=== PATIENT | male | born 1955 | race Caucasian/White ===

== ENCOUNTER 2025-07-28 13:59 | Outpatient (AMB) | payer OTHER, SELFPAY ==
--- NOTE | 2025-07-28 14:01 | A.OFFPC_ITS ---
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: No Accompanied by: Spouse Allergies No Known Allergies Allergy (Verified 07/28/25 14:07) Tobacco use date assessed: 07/28/25 Fall risk assessment: No Falls in past year Last assessed Fall Risk: 07/28/25 Dental Screening Dental Screen Date: 07/28/25 Did you have a dental visit in the last 12 months?: Yes Did you have a dental problem in the last 6 months where you did not have access to dental care?: No Was dental information given to patient?: Patient has dentist HPI HPI Comments History of Present Illness Details 69 year old male with a past medical his tory of prostate cancer, hypertension, erosive gastritis, diverticulosis, hiatal hernia, retinal detachment, pituitary adenoma, SSS, ED OA presenting [facility]. [facility] CV: on losartan, furosemide prn (usually a few times a week). Has seen cardiology in the past. Says h/o heart murmur has had reassuring echo in the past Prostate cancer-followed by [facility]. Seen 02/2025. s/p robotic prostatectomy s/p salvage radiation therapy. Will follow up in September. PSA has been 0 GI: Stable on omeprazole. History of esophageal stricture. Was with Dr Bull, last colonoscopy at [facility] Rsp: pulmonary nodules CT 12/2024-no changes MSK: history of LTHR. Dr Sharma He has been having numbness often right leg from hip to foot. Falls asleep when standing. Had right hip xray with mild arthritis. Sometimes low back discomfort nothing severe Pituitary adenoma-last MRI 2020 stable [facility]-Dr Martínez. [facility]-Dr Ag Colonoscopy 06/2022-5 years. @[facility] Shingrix 2021 Td 07/03/2022 PCV -2024 ROS see HPI PHYSICAL EXAM: GENERAL: Alert and oriented x 3. NAD EYES: EOMI. Anicteric. HENT: Moist mucous membranes. No scleral icterus. No cervical lymphadenopathy. LUNGS: Clear to auscultation bilaterally. CARDIOVASCULAR: Regular rate and rhythm. No murmur. No JVD. ABDOMEN: Soft, non-tender +bs EXTREMITIES: No edema. Non-tender. SKIN: No rashes or lesions. Warm. NEUROLOGIC: No focal neurological deficits. CN II-XII grossly intact PSYCHIATRIC: Cooperative. Appropriate mood and affect [facility] Surgical History (Updated 07/28/25 @ 14:37 by Yolande Lees CMA) H/O prostatectomy H/O hernia repair History of cataract surgery Hx of detached retina repair History of left hip replacement H/O arthroscopy of shoulder Family History (Updated 07/28/25 @ 14:38 by Yolande Lees CMA) Father Colon cancer Social History (Updated 07/28/25 @ 14:38 by Yolande Lees CMA) Housing: House Alcohol intake: current Patient Tobacco Use Status: Never used Tobacco e-Cigarette/Vaping Use: Never Used Second Hand Smoke Exposure: No service: Yes Current occupational status: retired Cognitive needs: No Hearing needs: Yes (hearing aid left ear) Vision needs: Yes (glasses) Questionnaire PHQ-9 Over the last 2 weeks, how often have you been bothered by any of the following problems? 1. Little interest or pleasure in doing things: not at all 2. Feeling down, depressed, or hopeless: not at all 3. Trouble falling or staying asleep, or sleeping too much: not at all 4. Feeling tired or having little energy: not at all 5. Poor appetite or overeating: not at all 6. Feeling bad about yourself - or that you are a failure or have let yourself or your family down: not at all 7. Trouble concentrating on things, such as reading the newspaper or watching television: not at all 8. Moving or speaking so slowly that other people could have noticed. Or the opposite - being so fidgety or restless that you have been moving around a lot more than usual: not at all 9. Thoughts that you would be better off or of hurting yourself in some way: not at all Total score: 0 Depression Screening Interpretation: Negative Depression Screening Done: Yes 96424 - PHQ-9 Billing: Yes Source: Developed by Drs. Hunter Malhotra, Carey BPardeep Escobar and colleagues, with an educational marina from [employer]. Thrive Questionnaire Date Thrive assessed: 07/24/25 I am a: Patient What is your living situation today?: I have a steady place to live Within the past 12 months, did the food you bought not last and you didn't have the money to get more?: Never true Within the past 12 months, did you worry whether your food would run out before you got money to buy more?: Never true Do you have trouble paying for medicines?: No Do you have trouble getting transportation to medical appointments?: No Do you have trouble paying your heating and electricity bill?: No Do you have trouble taking care of your child, family member or friend?: No Do you have trouble with day-to-day activities such as bathing, preparing meals, shopping, managing finances, etc.?: No Are you currently unemployed and looking for a job?: No Are you interested in more education?: No Please select the resources that you would like help with: None Currently or been in a relationship where the following occur: No concerns reported THRIVE Score: 0 AUDIT C Alcohol Use Questionnaire (AUDIT-C) 1. How often do you have a drink containing alcohol?: 2-4 times a month 2. How many drinks containing alcohol do you have on a typical day when you are drinking?: 1 or 2 3. How often do you have six or more drinks on one occasion?: Never Total Score: 2 YAQUELIN-7 AMB Questionnaire YAQUELIN-7 Date YAQUELIN - 7 assessed: 07/28/25 Feeling nervous, anxious, or on edge: 0 = Not at all Not being able to stop or control worryin = Not at all Worrying too much about different things: 0 = Not at all Trouble relaxin = Not at all Being so restless that it is hard to sit still: 0 = Not at all Becoming easily annoyed or irritable: 0 = Not at all Feeling afraid as if something awful might happen: 0 = Not at all Total YAQUELIN-7 score (0-4 normal; 5-9 mild; 10-14 moderate; 15-21 severe): 0 Source: Developed by Drs. Hunter Malhotra, Pardeep Dang and colleagues, with an educational marina from [employer]. YAQUELIN-7 Assessment Billing YAQUELIN-7 Assessment Tool: YAQUELIN-7 Assessment 34990 Physical exam (Primary Care) Vital Signs: Last Vital Signs Temp 97.9 F 07/28/25 14:09 Pulse 68 07/28/25 14:09 Resp 16 07/28/25 14:09 BP 145/69 H 07/28/25 14:09 Pulse Ox 98 07/28/25 14:09 Oxygen Delivery Method Room Air 07/28/25 14:09 BMI result Body Mass Index 46.8 Tobacco/Smoking Status: Tobacco use Status Tobacco use date assessed 07/28/25 07/28/25 14:08 Patient Tobacco Use Status Never used Tobacco 07/28/25 14:38 e-Cigarette/Vaping Use Never Used 07/28/25 14:38 PHQ-9: PHQ-9 Score PHQ-9: Total score 0 07/28/25 15:26 Depression Screening Interpretation: Negative Thrive Assessment: Date of Thrive Assessment Date Thrive assessed 07/24/25 07/28/25 14:03 Currently or been in a relationship where the following occur: No concerns reported Coding Level of Care Code New Pt Level 4 (55722) Complex EM visit Add On G2211 Diagnoses Primary hypertension I10 Hypertension type: primary hypertension Prostate cancer C61 Pituitary adenoma D35.2 Low back pain, unspecified back pain laterality, unspecified chronicity, un specified whether sciatica present M54.50 Chronicity: unspecified Back pain laterality: unspecified Sciatica presence: unspecified whether sciatica present Right hip pain M25.551 Encounter to establish care Z76.89 Additional Codes YAQUELIN-7 Assessment Billing - YAQUELIN-7 Assessment Tool: YAQUELIN-7 Assessment 22116 ([id number]) PHQ-9 - 92991 - PHQ-9 Billing: Yes ([id number]) Assessment & Plan Assessment & Plan (1) Hypertension: Code(s): I10 - Essential (primary) hypertension Category: Medical Qualifiers: Hypertension type: primary hypertension Qualified Code(s): I10 - Essential (primary) hypertension (2) Prostate cancer: Code(s): C61 - Malignant neoplasm of prostate Category: Medical (3) Pituitary adenoma: Code(s): D35.2 - Benign neoplasm of pituitary gland Category: Medical (4) Low back pain: Code(s): M54.50 - Low back pain, unspecified Category: Medical Qualifiers: Chronicity: unspecified Back pain laterality: unspecified Sciatica presence: unspecified whether sciatica present Qualified Code(s): M54.50 - Low back pain, unspecified (5) Right hip pain: Code(s): M25.551 - Pain in right hip Category: Medical (6) Encounter to establish care: Code(s): Z76.89 - Persons encountering health services in other specified circumstances Plan 69 y/o to establish care Past medical surgical social reviewed htn-well controlled GERD-stable on PPI Pituitary adenoma-imaging overdue.Claustrophobia-open MRI right leg numbness -xray ordered labs ordered Orders: Orders Complete Blood Count Auto Diff 07/28/25 C61 - Malignant neoplasm of prostate, D35.2 - Benign neoplasm of pituitary gland, I10 - Essential (primary) hypertension, R35.89 - Other polyuria, Z13.228 - Encounter for screening for other metabolic disorders Lipid Panel 07/28/25 C61 - Malignant neoplasm of prostate, D35.2 - Benign neoplasm of pituitary gland, I10 - Essential (primary) hypertension, R35.89 - Other polyuria, Z13.228 - Encounter for screening for other metabolic disorders Hemoglobin A1c 07/28/25 C61 - Malignant neoplasm of prostate, D35.2 - Benign neoplasm of pituitary gland, I10 - Essential (primary) hypertension, R35.89 - Other polyuria, Z13.228 - Encounter for screening for other metabolic disorders TSH reflex Free T4 07/28/25 C61 - Malignant neoplasm of prostate, D35.2 - B enign neoplasm of pituitary gland, I10 - Essential (primary) hypertension, R35.89 - Other polyuria, Z13.228 - Encounter for screening for other metabolic disorders XR lumbar spine 2-3V 07/28/25 M54.50 - Low back pain, unspecified, R20.0 - Anesthesia of skin MR head/brain wo/w con Today D35.2 - Benign neoplasm of pituitary gland Comprehensive Met. Panel 07/28/25 C61 - Malignant neoplasm of prostate, D35.2 - Benign neoplasm of pituitary gland, I10 - Essential (primary) hypertension, R35.89 - Other polyuria, Z13.228 - Encounter for screening for other metabolic disorders Testosterone, Free/Total 07/28/25 C61 - Malignant neoplasm of prostate, D35.2 - Benign neoplasm of pituitary gland, I10 - Essential (primary) hypertension, R35.89 - Other polyuria, Z13.228 - Encounter for screening for other metabolic disorders Lyme IgG/IgM w/reflex to WB 07/28/25 M25.551 - Pain in right hip Medications: New omeprazole 20 mg PO BID 180 caps 3RF diazepam (Valium) Take one tablet oral the night before MRI 5 mg PO BEDTIME PRN 1 tab 0RF MRI anxiety lorazepam (Ativan) Take one tab 90 minutes before MRI. Repeat 20 minutes prior to procedure if needed for anxiety 2 tabs 0RF anxiety
[2025-07-28 14:09] VITALS: BP 145/69; PULSE 68; RESP 16; TEMP 36.6; O2SAT 98; BMI 46.8
--- OUTSIDE RECORDS SUMMARY | 2025-07-28 15:49 | XMS_ITS | Clinical Summary ---
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 0 03/29/2020 Active omeprazole (PriLOSEC) 20 MG capsule 0 12/10/2020 Active Turmeric 500 MG CAPS Take 2 capsules by mouth. 0 Active Multiple Vitamin (MULTI VITAMIN MENS PO) 1 tab po daily 0 Active amoxicillin (AMOXIL) 500 MG capsule Take 4 tablets one hour prior to dental procedure 4 capsule 3 09/25/2022 Active Family History Medical History Relation Name Comments Cancer Father Heart disease Father Relation Name Status Comments Father Social History Tobacco Use Types Packs/Day Years Used Date Smoking Tobacco: Never Smokeless Tobacco: Never Alcohol Use Standard Drinks/Week Comments Yes 0 (1 standard drink = 0.6 oz pur e alcohol) Sex and Gender Information Value Date Recorded Sex Assigned at Not on file Gender Identity Not on file Sexual Orientation Not on file Job Start Date Occupation Industry Not on file Not on file Not on file Last Filed Vital Signs Vital Sign Reading Time Taken Comments Blood Pressure - - Pulse - - Temperature - - Respiratory Rate - - Oxygen Saturation - - Inhaled Oxygen Concentration - - Weight 116.1 kg (256 lb) 06/27/2022 9:23 AM EDT Height 167.6 cm (5' 6 ) 06/27/2022 9:23 AM EDT Body Mass Index 41.32 06/27/2022 9:23 AM EDT Plan of Treatment Health Maintenance Due Date Last Done Comments Hepatitis C Screening 1955 COVID-19 Vaccine (#1) 05/04/1956 Depression Screening 1967 BMI Counseling 1973 Preventative Health Evaluation 1973 Colon Cancer Screening (Colonoscopy) 2000 Fall Risk Assessment 2020 Shingrix-Zoster Vaccine (2 of 2) 01/21/2022 11/26/2021 Pneumococcal Vaccine (2 of 2 - PCV) 06/10/2022 06/10/2021 Influenza Vaccine (#1) 2025 9, 06/25/2018, 09/03/2017, Additional history exists RSV Adult > 60+ Yrs or (1 - 1-dose 75+ series) 2030 DTap / Tdap / Td (3 - Td or Tdap) 07/03/2032 07/03/2022, 04/21/2012, 06/21/2005 Hepatitis B Vaccines Aged Out No long er eligible based on patient's age to complete this topic RSV Ped < 20 months Aged Out No longe r eligible based on patient's age to complete this topic Care Teams Power Chisel Operator Relationship Specialty Start Date End Date Rishi Narayanan MD [address] [place] [id number] PCP - General Internal Medicine 12/18/20
--- OUTSIDE RECORDS SUMMARY | 2025-07-28 15:49 | XMS_ITS | Data Portability ---
Author Organization [place] [facility] Address [address] [place] [address] Assessment Encounter Date Assessment Date Assessment LastModified by Organization Details LastModified Time 02/02/2023 02/02/2023 67-year-old gentleman presents with complaint of right hip pain. It is not entirely clear if his pain is coming from the low back or the right hip joint. After discussion regarding treatment options Mr. Terrell wishes to proceed with intra-articular injection of cortisone to the right hip. This will be done for both therapeutic and diagnostic reasons. I have asked him to document his pain level immediately after the injection and I would like to see him in follow-up 3 weeks after the injection. Arrangements will be made to have the injection done by an interventional radiologist given his BMI. If he fails to show any meaningful response I will recommend that he be seen for further evaluation by our talent management specialist. [email or web address] Not available 02/02/2023 16:10:34 Plan of Treatment Reminders Order Date Submit Date Provider Last Modified By Organization Details Last Modified Time Details Appointments None recorded. Lab None recorded. Referral intervent ional radiologi st referral - Intra-art icular injection of cortisone and local anestheti c to right hip. With x-ray or ultrasoun d guidance. Please document preproced ure and postproce dure pain levels. Please Call Karla at [phone] wvs [phone] when scheduled . 2022 023 [email or web address] 2 [facility] Interventional Radiology Scheduling, [address], [place], [address], 06/20/202 3 08:22:28 Procedures None recorded. Surgeries None recorded. Imaging XR, hip, unilatera l, 2 or 3 view 2022 023 [email or web address] 2 [facility], [address], [facility] [address], [place], [address], 3 16:08:20 Medication Orders None recorded. Patient TargetsNo targets recorded. Patient InstructionsNo instructions recorded. Reason for Referral Interventional Radiologist Tom hooks for Pain of right hip joint Intra-articular injection of cortisone and local anesthetic to right hip. With x-ray or ultrasound guidance.Please document preprocedure and postprocedure pain levels.Please Call Karla at [phone] ext [phone] when scheduled. Referring Physician: Prem Jack, Orthopedic Surgery, Encounter Date: 02/02/2023 Results Created Date Observation Date Name Description Value Unit Range Abnormal Flag Note LastModifiedBy Organization Detail LastModifiedTime 02/26/2002/25/2023 CT, arthr ogram , hip No observ ation record ed. [facility] Diagnosit Imaging Dept [address] [place], [address], 02/27/2023 14:01:00 Result Notes None recorded. Problems Name Problem SNOMED Code Status Onset Date Resolution Date Notes Provider Name and Address Organization Details Recorded Time Pain of right hip joint 820404058287425 Active 2022 PREM JACK PA-C [address] [facility] [address], [place], [address] [facility] 3 16:05:21 Problem Notes None recorded. Procedures Surgical History Date Name Laterality Status Provider Name and Address Organization Details Recorded Time 09/21/19 21 total replacement of hip completed Chela Minaya [place] [facility] 02/02/2023 16:13:24 09/21/19 19 surgical repair completed Chela Minaya [place] [facility] 02/02/2023 16:13:48 Imaging Results None recorded. Procedure Notes None recorded. Medical Equipment None Reported. Allergies No known drug allergies Medications Name Sig Start Date Stop Date Status Note LastModified by Organization Details LastModified Time amoxicillin 500 mg capsule Take 4 tablets one hour prior to dental procedure 2022 active Not Available Not Available Not Avai lable ketoconazol e 2 % shampoo active Not Available Not Available Not Available sildenafil 50 mg tablet active Not Available Not Available Not Available meloxicam 15 mg tablet Take 1 tablet (15 mg total) by mouth daily as needed for pain for up to 30 days. 04/22 completed Not Available Not Available Not Available peg-electro lyte solution 420 gram oral solution active Not Available Not Available Not Available lorazepam 0.5 mg tablet Take 0.5 mg by mouth. 2019 active Not Available Not Available Not Avai lable benzonatate 100 mg capsule active Not Available Not Available Not Available omeprazole 20 mg capsule,del ayed release active Not Available Not Available Not Available codeine 10 mg-guaifene sin 100 mg/5 mL oral liquid 02/02 completed Not Available Not Available Not Available Baby Aspirin 81 mg chewable tablet Chew 1 tablet every day by oral route. active Not Available Not Available No t Available furosemide 20 mg tablet Take 1 tab daily as needed for leg edema active Not Available Not Available No t Available oxycodone 5 mg tablet TAKE 1 TABLET BY MOUTH EVERY 4 TO 6 HOURS NEEDED FOR PAIN (DO NOT DRIVE WHILE ON THIS MEDICATIO N) active Not Available Not Available No t Available Vitals Date Recorded Body height Body mass index (BMI) Body weight Provider Name and Address Organization Details Last Updated DateTime 02/02/2023 170.18 cm 39.2 kg/m2 491059.[address] [place] [facility], 02/02/2023 16:12:26 Social History None recorded. Functional Status Question Answer Note LastModified by Organizat ion Details LastModified Time Do you use any illicit or recreational drugs? No [email or web address] Information not available 02/02/2023 What is your level of alcohol consumption? None [email or web address] Information not available 02/02/2023 Mental Status None recorded. Family History Relationship Description Onset Age of this Age Resolved Age Notes LastModified by Organization Details LastModified Time Father Family history of malignant neoplasm [email or web address] Not available 02/02 16:12:41 Father Diabetes mellitus Not available 02/02 16:12:50 Father Heart disease [email or web address] Not available 02/02 16:12:59 Medical History Condition Response Coronary Artery Disease N Gout N Hyperthyroidism N Blood Transfusion N MRSA N Emphysema N Depression N COPD N Hypothyroidism N Pacemaker N Vascular Disease N Gastrointestinal Disease N Anxiety Disorder N Autoimmune disease N Arthritis N Cancer N Stroke N High Cholesterol N Neurologic Disorder N Liver Disease N Organ Transplant N Rheumatoid Arthritis N Arrhythmia N Fibromyalgia N Kidney Disease N Allergies/Hayfever N Adverse Reaction to Anesthesia N Thyroid Problems N Anemia N Brain Injury N Heart Attack ([place]) N Osteopenia N Diabetes N Bleeding Disorder N Seizures/Epilepsy N AIDS/HIV N Congestive Heart Failure (CHF) N Asthma N Amputation N Reflux/GERD Y Sleep Apnea N Hepatitis N Aneurysm N Heart Disease N Pulmonary Embolism N Hypertension N Osteoporosis N Past Encounters Encounter ID Performer Location Encounter Start Date Encounter Closed Date Diagnosis/Indication Diagnosis SNOMED-CT Code Diagnosis ICD10 Code Diagnosis IMO Codes Diagnosis Note [id number] [facility] [address] [address] 02/02/2023 15:21:08 02/02/2023 16:08:20 Pain of right hip joint [id number] 56700 M25.551 Health Concerns Section Related Observation LastModified by Organization Detai ls LastModified Time None Recorded Concern Status LastModified by Organization Details LastModified Time None Recorded Advance Directives Directive None Recorded Payers Insurance Date Sequence Insurance Name Policy Number Policy Burks Covered Member ID Burks Member ID Guarantor Name 01/20/[address] [facility] (POS) [id number] [facility] [id number] [facility] 01/20/[address] [facility] (PPO) [id number] [facility] [id number] [facility] Notes Date Note Type Note Provider Name and Address Organization Details Recorded Time 02/02/2023 text/html 67-year-old gentleman presents with his for evaluation of 6 months worth of progressive worsening pain at the lateral aspect of the right hip. He has recently begun to experience numbness that goes into the thigh especially on walking greater than a mile. He has a recent elevated PSA and is being worked up actively for prostate cancer though no definitive diagnosis has been made yet. He has pain at the low back he has pain that radiates to the thigh but not inclusive of the knee nor does it go beyond the knee. He is status post left-sided total hip arthroplasty. He describes for me that some but not all of his symptoms feel similar to when he had the arthritis pain at the left hip. He was told at 1 point in the past by Dr. Self that he does not have enough arthritis at the right hip to warrant surgical intervention. PREM JACK PA-C [address] [place] [address], [address], [place] [facility] 02/02/2023 16:11:04
--- OUTSIDE RECORDS SUMMARY | 2025-07-28 15:49 | XMS_ITS | Encounter Summary ---
Author Organization [facility] Address [address] [place] [address] Phone Care Team Providers Care Hi Teacher Name Role Phone Rishi Narayanan MD Primary Care Provider [phone] Khadar Roe MD Unavailable [phone] Vicki Kelly MD, MPH Unavailable [phone] Bárbara Patel MD Unavailable Encounter Details Date Type Department Care Team (Late st Contact Info) Description 11/23/2023 Ancillary Orders Outside Imaging Khadar Roe MD [address] [place] [phone] [email or web address] Social History Tobacco Use Types Packs/Day Years Used Date Smoking Tobacco: Never Assessed Child or Family Care Answer Date Record ed Do you have problems with on e of the following making it difficult for you to work, study, or receive health care? No 11/22/2023 Education Answer Date Recorded Are you interested in more education? Not on fernando e 11/03/2023 Are you concerned about learning? Not on file 11/03/2023 No 11/03/2023 No 11/03/2023 Food Answer Date Recorded Within the past 6 months we worried whether our food would run out before we got money to buy more. Never True 11/22/2023 Within the past 6 months the food we bought just didn't last and we didn't have enough money to get more. Never True Residential Stability Answer Date Recor ded What is your housing situation today? I have [place] wu 11/22/2023 How many times have you moved in the past 12 mon ths? One time 11/22/2023 Paying for Meds Answer Date Recorded Do you have trouble paying for medicines? No 11/22/2023 Paying Utility Bills Answer Date Record ed Do you have trouble paying your heating or elect ricity bill? No 11/22/2023 Transportation Answer Date Recorded Has the lack of transportati on kept you from medical appointments or from getting medications? No 11/22/2023 Digital Access Answer Date Recorded No 11/03/2023 No 11/03/2023 Reliable internet access at home? Not on file 11/03/2023 Device with a working camera? Not on file Sex and Gender Information Value Date Recorded Sex Assigned at Male 11/03/2023 9:15 AM EST Legal Sex Male 9:14 AM EST Gender Identity Male 11/03/2023 9:15 AM EST Sexual Orientation Not on file documented as of this encounter Plan of Treatment Not on file documented as of this encounter Results * NM PET Whole Body Outside (No Interpretation) (10/15/2023 12:00 AM EST) Other Narrative TYLER_H - 11/23/2023 12:09 PM EST This study is for PACS storage only and not for interpretation. us Khadar Roe MD IMG OUTSIDE IMAGING W/O UT INTERPRETATION Final Result Performing Organization Address City/State/[facility] Co de Phone Number PER[facility] documented in this encounter Visit Diagnoses Not on filedocumented in this encounter Care Teams Hi Teacher Relationship Specialty Start Date End Date Rishi Narayanan MD [address] [place] [address] PCP - General Internal Medicine 11/03/23 Khadar Roe MD [address] [place] [phone] [email or web address] Oncology 11/03/23 Vicki Kelly MD, MPH [address] [place] [address], [facility]- [address] [phone] [email or web address] Radiation Oncology 11/03/23 Bárbara Patel MD [address] [place] [phone] [email or web address] Radiation Oncology 11/22/23 documented as of this encounter Additional Source Comments The information contained in this document represents components of the legal health record. It is not the complete legal health record.[facility]
--- OUTSIDE RECORDS SUMMARY | 2025-07-28 15:49 | XMS_ITS ---
Author Name [facility] Organization Unknown History of Medication Use Medication Directions Dispensed Refills Start Date End Date Stat us amoxicillin 500 mg capsule active benzonatate 100 mg capsule active codeine 10 mg-guaifenesin 100 mg/5 mL oral liquid activ e furosemide 20 mg tablet active ketoconazole 2 % shampoo active omeprazole 20 mg capsule,delayed release active oxycodone 5 mg tablet TAKE 1 TABLET BY MOUTH EVERY 4 TO 6 HOURS NEEDED FOR PAIN (DO NOT DRIVE WHILE ON THIS MEDICATION) active peg-electrolyte solution 420 gram oral solution active sildenafil 50 mg tablet active Problems Problem Status Onset Date Problem Type Date of Resoluti on Source Pain in right hip joint active 2023-02-02 ProblemAct ENS_AONECT Encounters Encounter Type Encounter Reason Primary Diagnosis Location Date Ambulatory [facility] 02/02/2023 Ambulatory [facility] 02/02/2023 Ambulatory [facility] 01/20/2023 Ambulatory [facility] 01/20/2023 Ambulatory [facility] 01/20/2023 Ambulatory [facility] 01/20/2023 Care Team Organization Name Specialty Phone Email Start Date End Da te [facility] Rishi Narayanan Primary Care 07/29/2022 05/09/2024
--- OUTSIDE RECORDS SUMMARY | 2025-07-28 15:49 | XMS_ITS | Encounter Summary ---
Author Organization [facility] Address [address] [place] [address] Phone Care Team Providers Care Electrotyper Name Role Phone Rishi Narayanan MD Primary Care Provider [phone] Khadar Roe MD Unavailable [phone] Vicki Kelly MD, MPH Unavailable [phone] Bárbara Patel MD Unavailable Encounter Details Date Type Department Care Team (Late st Contact Info) Description 11/23/2023 Ancillary Orders Outside Imaging Khadar Roe MD [address] [place] [phone] [email or web address] Social History Tobacco Use Types Packs/Day Years [...] documented as of this encounter Results * MRI Pelvis (Soft Tissue) Outside (No Interpretation) (10/16/2023 12:00 AM EST) Other Narrative PERCDIMITRIIO_DFCI - 11/23/2023 12:09 PM EST This study is for PACS storage only and not for interpretation. us Khadar Roe MD IMG OUTSIDE IMAGING W/O UT INTERPRETATION Final Result PERC[facility] documented in this encounter Visit Diagnoses Not on filedocumented in this encounter Care Teams Electrotyper Relationship Specialty Start Date End Date Rishi Narayanan MD [address] [place] [phone] PCP - General Internal Medicine 11/03/23 Khadar Roe MD [address] [place] [phone] [email or web address] Oncology 11/03/23 Vicki Kelly MD, MPH [address] [place] [address], [facility] [place] [address] [email or web address] [email or web address] Oncology 11/03/23 Bárbara Patel MD [address] [place] [phone] [email or web address] Radiation Oncology 11/22/23 documented as of this encounter Additional Source Comments The information contained in this document represents components of the legal health record. It is not the complete legal health record.[facility]
--- OUTSIDE RECORDS SUMMARY | 2025-07-28 15:49 | XMS_ITS | Clinical Summary ---
Author Organization [facility] Address [address] [place] [address] Phone Care Team Providers Care Wool Carder Name Role Phone Rishi Narayanan MD Primary Care Provider [phone] Khadar Roe MD Unavailable [phone] Vicki Kelly MD, MPH Unavailable [phone] Bárbara Patel MD Unavailable Active Problems Problem Noted Date Diagnosed Date Bradycardia 11/22/2023 Overview (11/22/2023): Mar 22, 2018 Entered By: CROW DALAL Comment: Heart Rate Historically Low ; EKG APRIL 07: Sinus Sumit (HR 46)Mar 22, 2018 Entered By: CROW DALAL Comment: Is AsymptomaticJul 2017 Entered By: CROW DALAL Comment: US, Aorta APRIL 07: no AAAAug 2017 Entered By: CROW DALAL Comment: See Cardio Note Dated Apr 18Sep 2018 Entered By: CROW DALAL Comment: See Cardio Note Dated JUN 09; Stable ; f/u MAY 10 Combined forms of age-related cataract, bilatera l 11/22/2023 Dysphagia 11/22/2023 Overview (11/22/2023): Jan 16, 2015 Entered By: CROW DALAL Comment: EGD & Bx [place] JAN 03: +Hiatal Hernia & Esophag StricturApr 2014 Entered By: CROW DALAL Comment: Had Balloon Dilatation; on PPI Generalized osteoarthrosis, involving multiple s ites 11/22/2023 Overview (11/22/2023): Jul 05, 2008 Entered By: CROW DALAL Comment: not Surg case; LBP Non-Radicular Hypertension 11/22/2023 Overview (11/22/2023): Dec 10, 2022 Entered By: CROW DALAL Comment: Stage One HTN; Declines Meds as of DEC 11 Lesion of ulnar nerve 11/22/2023 Overview (11/22/2023): Jul 09, 2009 Entered By: CROW DALAL Comment: Right Side; NCS 1989's in [place] Positive for Neuropathy;Sep 25, 2010 Entered By: CROW DALAL Comment: much better after PT Other seborrheic dermatitis 11/22/2023 Actinic keratosis 11/22/2023 Severe obesity 11/22/2023 Prostate cancer 10/13/2023 Cancer Staging:Pathologic stage from 07/28/2023:Stage Unknown(pT3a, pNX, cM0, PSA: 5.2, Grade Group: 3, 07/28/23, [place]: 4, +: 3) - Signed by Vicki Kelly MD, MPH on 11/23/2023 Clinical: Unsigned Varicose vein of leg 03/30/2023 Overview (11/22/2023): Last Assessment & Plan: He does not have symptoms. Weight loss will be helpful. We had a discussion about further testing including lower extremity venous duplex to assess venous reflux in future when prostate cancer assessment and treatment are done. At the meantime, we went through conservative approach including compressive stockings. Sinus bradycardia 07/02/2021 Overview (11/22/2023): Last Assessment & Plan: Heart rate is reasonable in the low normal range. He is asymptomatic. We will try to avoid any rate limiting medications. He can come back as needed. Pituitary adenoma 04/11/2020 Overview (11/22/2023): 4.5 mm, followed by endo. Repeat MRI in Oct 2020 Fatty liver 08/04/2019 Osteoarthritis 08/04/2019 Overview (11/22/2023): Jun 10, 2021 Entered By: CROW DALAL Comment: pending THR, L Side JUL 11:Jun 10, 2021 Entered By: CROW DALAL Comment: X-Ray, L Hip in 2020 Shows some AVN and Klcl-hc-Ocps OA Spine, Hips, Knees Sick sinus syndrome 03/11/2019 Erectile dysfunction 01/21/2018 Spleen anomaly 01/28/2017 Overview (11/22/2023): sono 01/05 Diverticulosis of colon 11/10/2016 Erosive esophagitis 12/25/2014 Esophageal stricture 12/25/2014 Overview (11/22/2023): Balloon Dilation 2014 Esophageal hiatus hernia 12/25/2014 Hearing loss 02/05/2011 Overview (11/22/2023): Sep 25, 2010 Entered By: CROW DALAL Comment: [facility] Pulmonary nodules 01/14/2010 Overview (11/22/2023): Sep 25, 2010 Entered By: CROW DALAL Comment: ABNL CT, Chest NOV 28: prob Nodule; doing surveillanceSep 25, 2010 Entered By: CROW DALAL Comment: never smoked; repeat CT early 2010 Entered By: CROW DALAL Comment: PFT's WNL 2009, [place] Entered By: CROW DALAL Comment: CT as of AUG 01: Still StableApr 22, 2017 Entered By: CROW DALAL Comment: Nodules (there are more) are Benign in Appearance; Stable Apr 22, 2017 Entered By: CROW DALAL Comment: Sees Pulmo as of 2017; has f/u in 2018Jul 2018 Entered By: CROW DALAL Comment: last CT, Lungs 2019: No Adverse Change; Benign Mar 25, 2019 Entered By: CROW DALAL Comment: o Further Testing Needed CT Chest (12/29/18): Stable subpleural pulmonary nodule in the right middle lobe. No new or enlarging pulmonary nodules. No significant interval change since previous examination. No follow-up is needed based on updated Fleischner Society recommendations. 1st seen on CT 2-10, followed for 2 yrs w/o change Resolved Problems Problem Noted Date Diagnosed Date Resolved Date Closed fracture of calcaneus 11/22/2023 11/22/2023 Overview (11/22/2023): Jun 15, 2019 Entered By: CROW DALAL Comment: Fx & ORIF, Fx Calcaneus, L Foot MAY 09:Jun 15, 2019 Entered By: CROW DALAL Comment: [place] Entered By: CROW DALAL Comment: Surg Revision Planned in 2021; Hardware Becoming Symptomatic Microscopic hematuria 11/22/20232023 Overview (11/22/2023): Apr 14, 2016 Entered By: CROW DALAL Comment: US, Renals, Bladder APRIL 05: No Mass or Bleed Calculus of gallbladder 10/29/2009 03/11/2023 Overview (11/22/2023): Sep 25, 2010 Entered By: CROW DALAL Comment: Asymptomatic; Incidental Finding on CT of Chest Social History Tobacco Use Types Packs/Day Years [...] your housing situation today? I have [place] 11/22/2023 How many times have you moved in the past 12 thu th? One time 11/22/2023 Paying for Meds Answer [...] AM EST Sexual Orientation Not on file Last Filed Vital Signs Vital Sign Reading Time Taken Comments Blood Pressure 165/72 11/23/2023 12:52 PM EST Pulse 62 11/23/2023 12:52 PM EST Temperature 36.3 C (97.4 F) 11/23/2023 12:52 PM EST Respiratory Rate 18 11/23/2023 12:52 PM EST Oxygen Saturation 99% 11/23/2023 12:52 PM EST Inhaled Oxygen Concentration - - Weight 120 kg (264 lb 8.8 oz) 11/23/2023 12:52 P M EST Height 166.7 cm (5' 5.63 ) 11/23/2023 12:[address] Body Mass Index 43.18 11/23/2023 12:52 PM EST Plan of Treatment Health Maintenance Due Date Last Done Comments DEPRESSION SCREENING 1967 SMOKING Hx and SMOKELESS TOBACCO SCREENING 1968 HEPATITIS C SCREENING 1973 SCREENING FOR DIABETES 1990 COLOGUARD 2000 COLONOSCOPY 2000 COLORECTAL CANCER SCREENING 2000 FIT TEST 2000 FOBT 2000 SIGMOIDOSCOPY 2000 VIRTUAL COLONOSCOPY 2000 RSV VACCINE (1 - Risk 50-74 years 1-dose series) 2005 PNEUMOCOCCAL VACCINES (50+ years) (2 of 2 - PCV) 06/10/2022 06/10/2021 BLOOD PRESSURE 05/25/2024 11/23/2023 INFLUENZA VACCINE (#1) 2025 9, 06/25/2018, 09/03/2017, Additional history exists COVID-19 VACCINE ( season) 2025 LIPID PANEL 11/02/2028 11/02/2023 Adult Td,Tdap Booster 07/03/2032 07/03/2022 , 04/21/2012, 06/21/2005 ZOSTER VACCINES Completed 03/31/2022, 11/20, 11/26/2021 HEPATITIS A VACCINES Aged Out No long er eligible based on patient's age to complete this topic HIB VACCINES Aged Out No longer eligi ble based on patient's age to complete this topic MENINGOCOCCAL VACCINES (ACWY) Aged Out No longer eligible based on patient's age to complete this topic MENINGOCOCCAL VACCINES (B) Aged Out N o longer eligible based on patient's age to complete this topic Medical Devices Not on file Insurance [facility] [employer] [facility] [employer] [employer] [facility] [employer] [employer] Care Teams Wool Carder Relationship Specialty Start Date End Date Rishi Narayanan MD [address] [place] [phone] PCP - General Internal Medicine 11/03/23 Khadar Roe MD [address] [place] [phone] [email or web address] Oncology 11/03/23 Vicki Kelly MD, MPH [address] [place] [phone] [email or web address] Oncology 11/03/23 Bárbara Patel MD [facility] [place] [address] [email or web address] Radiation Oncology 11/22/23 Additional Source Comments The information contained in this document represents components of the legal health record. It is not the complete legal health record.[facility]
--- OUTSIDE RECORDS SUMMARY | 2025-07-28 15:49 | XMS_ITS ---
Author Organization [facility] [address] [facility] Address [address] [facility] [place] [address] Phone Care Team Providers Care Match Maker Name Role Phone Giovanna Bunch MD Primary Care Provider [phone] Active Problems Problem Noted Date Diagnosed Date Hypertension 12/27/2024 Assessment & Plan (12/27/2024 3:39 PM EDT): Patient will follow low-sodium diet. Continue lisinopril. 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 Ag - onset late February 2024 Prostate cancer ([facility] V24, [facility] V28) 10/13 Overview (07/06/2024): prostatectomy (08/07/2023). Pathology demonstrated Martha 4+3 P T3a disease with nonfocal EPE. Assessment & Plan (12/27/2024 3:39 PM EDT): Patient will follow-up with urology around February for his history of prostate cancer. Assessment & Plan (08/22/2024 1:36 PM EST): He is being followed by urology and radiation oncology. Continue treatment through them. He has completed first week of radiation therapy. Varicose vein of leg 03/30/2023 Overview (07/06/2024): Last Assessment & Plan: He does not have symptoms. Weight loss will be helpful. We had a discussion about further testing including lower extremity venous duplex to assess venous reflux in future when prostate cancer assessment and treatment are done. At the meantime, we went through conservative approach including compressive stockings. Elevated PSA 01/14/2023 Edema 07/02/2021 Overview (07/06/2024): Last Assessment & Plan: Is mild. We discussed about low-salt diet. We will arrange echocardiogram to assess right-sided pressure. Sinus bradycardia 07/02/2021 Overview (07/06/2024): Last Assessment & Plan: Heart rate is reasonable in the low normal range. He is asymptomatic. We will try to avoid any rate limiting medications. He can come back as needed. Pituitary adenoma (CMS/HCC V24, CMS/HCC V28) Overview (07/06/2024): 4.5 mm, followed by endo. Repeat MRI in Sep/Oct 2020 Fatty liver 08/04/2019 Osteoarthritis 08/04/2019 Overview (07/06/2024): Spine, Hips, Knees Sick sinus syndrome (CMS/HCC V24, CMS/HCC V28) 0 03/11/2019 Erectile dysfunction 01/21/2018 Spleen anomaly 01/28/2017 Overview (07/06/2024): sono 01/05 Diverticulosis of colon 11/10/2016 Erosive esophagitis 12/25/2014 Assessment & Plan (12/27/2024 3:39 PM EDT): Avoid GERD triggering foods. Continue omeprazole. Assessment & Plan (08/22/2024 1:36 PM EST): Continue PPI therapy with omeprazole. Esophageal hiatus hernia 12/25/2014 Esophageal stricture 12/25/2014 Overview (07/06/2024): Balloon Dilation 2014 Hearing loss 02/05/2011 Overview (07/06/2024): Aid left ear Pulmonary nodules 01/14/2010 Overview (07/06/2024): CT Chest (12/29/18): Stable subpleural pulmonary nodule in the right middle lobe. No new or enlarging pulmonary nodules. No significant interval change since previous examination. No follow-up is needed based on updated Fleischner Society recommendations. 1st seen on CT 2-10, followed for 2 yrs w/o change Assessment & Plan (12/27/2024 3:39 PM EDT): Given his history of prostate cancer, patient is concerned about his pulmonary nodules. Will obtain a CT chest to follow-up on his pulmonary nodules. Orders: CT Chest wo Contrast; Future Assessment & Plan (08/22/2024 1:36 PM EST): As per previous guidelines, no further follow-up is needed but given history of prostate cancer suffered on I offered CT chest but patient states that he will be due next year and does not want it to be done currently. Gallstone 10/29/2009 Current Treatment and Therapy Plans No current plan information found. Past Treatment and Therapy Plans No past plan information found. Lifetime Dose Tracking * Chemical Lifetime Dose Automatic Entry Manual Entr y CTDIvol 18.7 mGy 18.7 mGy 0 mGy
--- OUTSIDE RECORDS SUMMARY | 2025-07-28 15:49 | XMS_ITS | Clinical Summary ---
Author Organization [facility] [address] [facility] Address [address] [place] [address] Phone Care Team Providers Care Telephone Solicitor Name Role Phone Giovanna Bunch MD Primary Care Provider [phone] Allergies No known active allergies Medications furosemide (LASIX) 20 mg tablet Take 1 tab daily as needed for leg edema 02/18/2024 Active cholecalciferol (VITAMIN D-3) 125 mcg (5,000 unit) capsule Take 125 mcg by mouth 1 (one) time each day. 07/22/2023 Active MEN'S MULTI-VITAMIN ORAL 1 tab po daily Active omeprazole (PriLOSEC) [address] capsule Take 2 capsules (40 mg total) by mouth 1 (one) time each day. 180 capsule 1 12/28/2024 Active losartan (Cozaar) 25 mg tablet Take 1 tablet (25 mg total) by mouth 1 (one) time each day. 30 each 2 03/03/2025 Active Active Problems Problem Noted Date Diagnosed Date Hypertension 12/27/2024 Assessment & Plan (12/27/2024 3:39 PM EDT): Patient will follow low-sodium diet. Continue lisinopril. Orders: Basic metabolic panel; Future Morbid obesity with BMI of 4 0.0-44.9, adult (CMS/HCC V24, CMS/HCC V28) 07/06/2024 Retinal detachment, tractional, right 04/04/2024 Overview (07/06/2024): Dr. Ag - onset late February 2024 Prostate cancer ([facility]/HCC V24, [facility]/HCC V28) 10/13 Overview (07/06/2024): prostatectomy (08/07/2023). Pathology [...] can come back as needed. Pituitary adenoma ([facility]/HCC V24, CMS/HCC V28) Overview (07/06/2024): 4.5 mm, [...] it to be done currently. Gallstone 10/29/2009 Immunizations Immunization Administration Dates Next Due Influenza trivalent, 0.5mL ( Fluad) 65yo and older 11/10/2016,08/07/2014,07/22/2012 Pneumococcal conjugate 20 va lent (Prevnar 20, PCV 20) 2mo and older 12/27/2024 Pneumococcal polysaccharide 23 valent (Pneumovax 23) 2yo and older 06/05/2021 Td Tetanus diptheria (Tdvax) 7yo and older 07/03,06/21/2005 Tdap Tetanus diptheria acell ular pertussis (Boostrix; Adacel) 7yo and older 04/21/2012 Zoster recombinant (Shingrix ) 19yo and older 11/26/2021 Surgical History Surgery Date Site/Laterality Comments HERNIA REPAIR PROCEDURE: HISTORICAL HERNIA REPAIR/ING; COMMENT: right OTHER SURGICAL HISTORY 1997 PROCEDURE: [place] SURGICAL ARTHROSCOPY SHOULDER LMTD DBRDMT 09/22; COMMENT: right OTHER SURGICAL HISTORY 01/25 PROCEDURE: SC ECHO TRANSTHORAC R-T 2D W/WO M-MODE REC COMP; COMMENT: neg FLEXIBLE SIGMOIDOSCOPY 04/16/09 PROCEDURE: SC SIGMOIDOSCOPY FLX DX W/COLLJ SPEC BR/WA IF PFRMD; COMMENT: hemorrhoids and diverticulosis ESOPHAGOGASTRODUODENOSCOPY 12/25/14 PROCEDURE: SC ESOPHAGOGASTRODUODENOSCOPY TRANSORAL DIAGNOSTIC; COMMENT: peptic stricture at GE junction dilated to 20 m with balloon; erosive esophagitis, biopsied; no Ortiz's COLONOSCOPY 08/26 PROCEDURE: SC COLONOSCOPY STOMA DX INCLUDING COLLJ SPEC SPX; COMMENT: Iron; tics; rpt 5 y COLONOSCOPY 11/17/11 PROCEDURE: SC COLONOSCOPY STOMA DX INCLUDING COLLJ SPEC SPX; COMMENT: tics and hemorrhoids; repeat in 5 yrs COLONOSCOPY 12/04/16 PROCEDURE: COLOREC CANC SCRN,COLONOSCPY HI RISK; COMMENT: tics and hemorrhoids; repeat in 5 yrs OTHER SURGICAL HISTORY 04/2019 Left PROCEDURE: SC OPEN TREATMENT CALCANEAL FRACTURE; COMMENT: ORIF calcaneus fracture OTHER SURGICAL HISTORY 07/04/2021 Left PROCEDURE: SC ARTHRP ACETBLR/PROX FEM PROSTC AGRFT/ALGRFT Medical History Medical History Date Comments Gallstone 10/29/2009 DX:Gallstone Pulmonary nodules 10/29/2009 DX:Pulmonary n odules Hearing loss 02/05/2011 DX:Hearing loss Diverticulosis of colon 11/10/2016 DX:Diver ticulosis of colon Erectile dysfunction 01/21/2018 DX:Erectile dysfunction Erosive esophagitis 12/25/2014 DX:Erosive e sophagitis Esophageal hiatus hernia 12/25/2014 DX:Esop hageal hiatus hernia Esophageal stricture 12/25/2014 DX:Esophage al stricture 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; COMMENT: sono 01/05 Sick sinus syndrome ([facility]/HCC V24, [facility]/HCC V28) 03/11/2019 DX:Sick sinus syndrome (HCC) Mitral valve regurgitation 08/04/2019 DX:Mi tral valve regurgitation; COMMENT: 04/2018 Echo: Trace-Mild, Tricuspid Valve- Mild Osteoarthritis 08/04/2019 DX:Osteoarthriti s; COMMENT: Hips, Knees Fatty liver 08/04/2019 DX:Fatty liver Morbid obesity with BMI of 4 0.0-44.9, adult (CMS/HCC V24, CMS/HCC V28) 10/29/2009 DX:Morbid obesity wit h BMI of 40.0-44.9, adult (HCC) Pituitary adenoma (CMS/HCC V 24, CMS/HCC V28) 04/11/2020 DX:Pituitary adenoma (HCC) Prostate cancer (CMS/HCC V24 , CMS/HCC V28) 10/13/2023 DX:Prostate cancer (HCC) Retinal detachment, tractional, right 04/04/2024 DX:Retinal detachment, tractional, right; COMMENT: Dr. Ag - juan late February 2024 Family History Medical History Relation Name Comments No Known Problems Brother No Known Problems Daughter Colon cancer Father Diabetes, Pacem ernestina Diabetes Father Lung cancer Maternal Grandmother smoker Other: Alzheimer's Disease Mother Diabetes Other pat; great uncl e Colon cancer Paternal Grandfather Stroke Obesity Sister No Known Problems Son Relation Name Status Comments Brother Alive Daughter Alive Father Maternal Grandmother Mother Other Paternal Grandfather Sister Alive Son Alive Social History Tobacco Use Types Packs/Day Years Used Date Smoking Tobacco: Never Smokeless Tobacco: Never Tobacco Cessation:Counseling Given: Not Answered Alcohol Use Standard Drinks/Week Comments Yes 0 (1 standard drink = 0.6 oz pur e alcohol) Sex and Gender Information Value Date Recorded Sex Assigned at Not on file Legal Sex Male 10:54 AM EST Gender Identity Not on file Sexual Orientation Not on file Obstetrics History Last Filed Vital Signs Vital Sign Reading Time Taken Comments Blood Pressure 130/76 03/10/2025 3:19 PM EDT Pulse 68 03/10/2025 3:19 PM EDT Temperature 36.2 C (97.1 F) 03/03/2025 10:10 AM EDT Respiratory Rate 18 03/10/2025 3:19 PM EDT Oxygen Saturation 97% 03/03/2025 10:10 AM EDT Inhaled Oxygen Concentration - - Weight 122 kg (268 lb) 03/10/2025 3:19 PM EDT Height 170.2 cm (5' 7 ) 03/10/2025 3:19 PM EDT Body Mass Index 41.97 03/10/2025 3:19 PM EDT Plan of Treatment Health Maintenance Due Date Last Done Comments COVID-19 Vaccine (#1) 1960 RSV Immunization Adult Patients (1 - Risk 50-74 years 1-dose series) 2005 Medicare Annual Wellness Visit 08/30/2022 Social Influencers of Health Screening 08/30/2022 Falls Risk Assessment 02/17/2025 02/18/2024 Influenza Vaccine (#1) 2025 9, 06/25/2018, 09/10/2017, Additional history exists Hypertension/CHF/CAD Annual BMP Blood Test 03/08/2026 03/08/2025, 01/02/2025, 11/14/2024, Additional history exists Colorectal Cancer Screening: Colonoscopy 06/24/2027 06/24/2022 Cholesterol Screening (Lipid Panel) 11/14/2029 11/14/2024, 11/02/2023 DTaP,Tdap,and Td Vaccines (6 - Td or Tdap) 07/03/2032 07/03/2022, 04/21/2012, 10/02/2011, Additional history exists Hepatitis C Screening Completed 08/07/2014 Zoster Vaccines Completed 03/31/2022, 11/20, 11/26/2021, Additional history exists Depression Screening Completed 11/10/2024 Pneumococcal Vaccine: 50+ Years Completed 12/27/2024, 06/05/2021 HIB Vaccines Aged Out No longer eligi ble based on patient's age to complete this topic HPV Vaccines Aged Out No longer eligi ble based on patient's age to complete this topic Hepatitis A Vaccines Aged Out No long er eligible based on patient's age to complete this topic Hepatitis B Vaccines Aged Out No long er eligible based on patient's age to complete this topic IPV Vaccines Aged Out No longer eligi ble based on patient's age to complete this topic MMR Vaccines Aged Out No longer eligi ble based on patient's age to complete this topic Meningococcal ACWY Vaccine Aged Out N o longer eligible based on patient's age to complete this topic Meningococcal B Vaccine Aged Out No l onger eligible based on patient's age to complete this topic RSV Immunization Patients Under 20 months Aged Out No longer eligible based on patient's age to complete this topic Varicella Vaccines Aged Out No longer eligible based on patient's age to complete this topic Procedures Procedure Name Priority Date/Time Associated Diagnosis Comments BASIC METABOLIC PANEL Routine 03/08/2025 4:14 PM EDT Hypertension, unspecified type LIPID PANEL WITH REFLEX TO DIRECT LDL Routine 11/14/2024 8:37 AM EST Screening cholesterol level FALLS RISK ASSESSMENT Routine 02/18/2024 COLONOSCOPY Routine 06/24/2022 HEPATITIS C SCREENING Routine 08/07/2014 from Last 3 Months or Most Recently Relevant to Health Maintenance Results * (ABNORMAL) Basic metabolic panel (03/08/2025 4:14 PM EDT) Sodium 141 133 - 145 mmol/L LAB CHEMISTRY METHOD 03/08/2025 6:38 PM EDT [facility] Potassium 4.1 3.5 - 5.5 mmol/L LAB CHEMISTRY METHOD 03/08/2025 6:38 PM EDT [facility] Chloride 108 96 - 110 mmol/L LAB CHEMISTRY METHOD 03/08/2025 6:38 PM EDT [facility] CO2 28 21 - 32 mmol/L LAB CHEMISTRY METHOD 03/08/2025 6:38 PM EDT [facility] Anion Gap 5 3 - 11 LAB CHEMISTRY METHOD 03/08/2025 6:38 PM EDT [facility] Glucose 107(H) 70 - 100 mg/dL LAB CHEMISTRY METHOD 03/08/2025 6:38 PM EDT [facility] BUN 19 5 - 25 mg/dL LAB CHEMISTRY METHOD 03/08/2025 6:38 PM EDT [facility] Creatinine 1.08 0.70 - 1.30 mg/dL LAB CHEMISTRY METHOD 03/08/2025 6:38 PM EDT [facility] eGFR 74 >=60 mL/min/1. 73m2 LAB CHEMISTRY METHOD 03/08/2025 6:38 PM EDT [facility] Comment:Calculation based on the Chronic Kidney Disease Epidemiology Collaboration (CKD-EPI) equation refit without adjustment for race. BUN/Creatinine Ratio 17.6 LAB CHE[facility]STRY METHOD [facility] Calcium 9.1 8.5 - 10.5 mg/dL LAB CHEMISTRY METHOD 03/08/2025 6:38 PM [facility] Blood Venous blood specimen / Unknown Venipuncture / Unknown 03/08/2025 4:14 PM EDT 03/08/2025 4:14 PM EDT Rishi Narayanan MD LAB BLOOD ORDERABLES Oralia suze Result [facility] [address] [place] [address], * Lipid panel with reflex to direct LDL (11/14/2024 8:37 AM EST) Cholesterol 149 0 - 200 mg/dL LAB CHEMISTRY METHOD 11/14/2024 12:31 PM EST [facility] Triglycerides 67 0 - 150 mg/dL LAB CHEMISTRY METHOD 11/14/2024 12:31 PM EST [facility] HDL 50 >=40 mg/dL LAB CHEMISTRY METHOD 11/14/2024 12:31 PM EST [facility] LDL Calculated 86 0 - 100 mg/dL LAB CHEMISTRY METHOD 11/14/2024 12:31 PM [facility] VLDL Cholesterol Hardik 13.4 mg/dL LAB CHEMISTRY METHOD 11/14/2024 12:31 PM EST [facility] Non HDL Chol. (LDL+VLDL) 99 <145 mg/dL LAB CHEMISTRY METHOD 11/14/2024 12:31 PM EST [facility] Chol/HDL Ratio 3.0 0.0 - 4.4 LAB CHEMISTRY METHOD 11/14/2024 12:31 PM [facility] Blood Venous blood specimen / Unknown Venipuncture / Unknown 11/14/2024 8:37 AM EST 11/14/2024 8:37 AM EST Rishi Narayanan MD LAB BLOOD ORDERABLES Oralia l Result [facility] [address] [place] [address], * Falls Risk Assessment (02/18/2024) [facility] Falls Risk Assessment abstracted Historical Provider HEALTH MAINTENANCE Final Result * Colonoscopy (06/24/2022) [facility] Colonoscopy abstracted, no interpretation Anatomical Region Laterality Modality Other Historical Provider HEALTH MAINTENANCE Final Result * Hepatitis C Screening (08/07/2014) [facility] Hepatitis C Screening abstracted Historical Provider HEALTH MAINTENANCE Final Result from Last 3 Months or Most Recently Relevant to Health Maintenance Insurance FAMILY [employer] PLAN MEDICARE Advance Directives Documents on File Type Date Recorded Patient Tutoring Assistant Expl anation Health Care Decision (hx) 07/08/2021 AD ALFONSO DIRECTIVE Health Care Decision (hx) 07/08/2021 AD ALFONSO DIRECTIVE Health Care Decision (hx) 07/08/2021 AD ALFONSO DIRECTIVE Health Care Decision (hx) 07/08/2021 AD ALFONSO DIRECTIVE Health Care Decision (hx) 07/08/2021 AD ALFONSO DIRECTIVE Health Care Decision (hx) 07/08/2021 AD ALFONSO DIRECTIVE Care Teams Telephone Solicitor Relationship Specialty Start Date End Date Giovanna Bunch MD [address] [place] [address] ANNELIESE MCDONALD [id number] PCP - General Internal Medicine 05/30/25
== END 2025-07-28 15:30 | disposition home or self-care (01) ==
LOC: HO.HMCFM 14:00
PROVIDERS: PCP Internal Medicine; Visit Provider Internal Medicine
DX: I10 Essential (primary) hypertension (principal); C61 Malignant neoplasm of prostate; D35.2 Benign neoplasm of pituitary gland; M54.50 Low back pain, unspecified; M25.551 Pain in right hip; Z76.89 Persons encountering health services in other specified circumstances

== ENCOUNTER → 2025-07-28 13:59 | Outpatient (BNVA) | payer OTHER, SELFPAY | PROVIDERS: PCP Internal Medicine; Visit Provider Internal Medicine | DX: Z76.89 Persons encountering health services in other specified circumstances (principal); I10 Essential (primary) hypertension; C61 Malignant neoplasm of prostate; D35.2 Benign neoplasm of pituitary gland; M54.50 Low back pain, unspecified; M25.551 Pain in right hip; R20.0 Anesthesia of skin; R91.8 Other nonspecific abnormal finding of lung field; Z79.899 Other long term (current) drug therapy; Z96.642 Presence of left artificial hip joint; Z13.31 Encounter for screening for depression; Z13.39 Encounter for screening examination for other mental health and behavioral disorders | CPT/HCPCS: 96127 ==

== ENCOUNTER 2025-08-02 09:40 | Outpatient (REF) | payer OTHER, SELFPAY ==
--- NOTE | ~2025-08-02 | XR_ITS ---
EXAMINATION: XR LUMBOSACRAL SPINE CLINICAL INFORMATION: R20.0 - Anesthesia of skin COMPARISON: None available. TECHNIQUE: Three views of the lumbosacral spine. FINDINGS: Total hip replacement has been performed on the left. There are 5 non-rib bearing lumbar segments. Vertebral body height and alignment is preserved. T12-L1: Disc space is preserved L1-L2: There is mild loss disc height and small endplate osteophytes L2-L3: There is mild to moderate disc space narrowing with endplate sclerosis and osteophytes L3-L4: There is subtle retrolisthesis, moderate disc space narrowing, endplate sclerosis and osteophytes L4-L5: There is moderate disc space narrowing with endplate sclerosis and osteophytes. There is mild facet sclerosis L5-S1: There is moderate disc space narrowing with endplate sclerosis and osteophytes. There is mild facet sclerosis. XR/XR lumbar spine 2-3V IMPRESSION: Degenerative disc disease and facet osteoarthritis is most advanced at L4-5 and L5-S1. Electronically signed by: Nickolas Garcia MD 08/02/2025 10:11 AM SHAYNA NIELSON
--- OUTSIDE RECORDS SUMMARY | 2025-08-02 10:59 | XMS_ITS | Clinical Summary ---
Author Organization [facility] [address] [facility] Address [address] [place] [address] Phone Care Team Providers Care Customs Examiner Name Role Phone Giovanna Bunch MD Primary Care Provider [phone] Allergies No known active allergies Medications furosemide [...] - onset late February 2024 Prostate cancer ([facility]/HCC V24, [facility]/HCC V28) 10/13 Overview (07/06/2024): prostatectomy (08/07/2023). Pathology [...] can come back as needed. Pituitary adenoma ([facility]/HCC V24, CMS/HCC V28) Overview (07/06/2024): 4.5 mm, [...] COMMENT: right OTHER SURGICAL HISTORY 1997 PROCEDURE: [place] SURGICAL ARTHROSCOPY SHOULDER LMTD DBRDMT 09/22; COMMENT: right OTHER SURGICAL HISTORY 01/25 PROCEDURE: [place] ECHO TRANSTHORAC R-T 2D W/WO M-MODE REC COMP; COMMENT: neg FLEXIBLE SIGMOIDOSCOPY 04/16/09 PROCEDURE: [place] SIGMOIDOSCOPY FLX DX W/COLLJ SPEC BR/WA IF PFRMD; COMMENT: hemorrhoids and diverticulosis ESOPHAGOGASTRODUODENOSCOPY 12/25/14 PROCEDURE: [place] ESOPHAGOGASTRODUODENOSCOPY TRANSORAL DIAGNOSTIC; COMMENT: peptic stricture at GE junction dilated to 20 m with balloon; erosive esophagitis, biopsied; no Ortiz's COLONOSCOPY 08/26 PROCEDURE: [place] COLONOSCOPY STOMA DX INCLUDING COLLJ SPEC SPX; COMMENT: Iron; tics; rpt 5 y COLONOSCOPY 11/17/11 PROCEDURE: [place] COLONOSCOPY STOMA DX INCLUDING COLLJ SPEC SPX; COMMENT: tics and hemorrhoids; repeat in 5 yrs COLONOSCOPY 12/04/16 PROCEDURE: COLOREC CANC SCRN,COLONOSCPY HI RISK; COMMENT: tics and hemorrhoids; repeat in 5 yrs OTHER SURGICAL HISTORY 04/2019 Left PROCEDURE: [place] OPEN TREATMENT CALCANEAL FRACTURE; COMMENT: ORIF calcaneus fracture OTHER SURGICAL HISTORY 07/04/2021 Left PROCEDURE: [place] ARTHRP ACETBLR/PROX FEM PROSTC AGRFT/ALGRFT Medical History [...] y; COMMENT: sono 01/05 Sick sinus syndrome ([facility]/HCC V24, [facility]/HCC V28) 03/11/2019 DX:Sick sinus syndrome (HCC) Mitral [...] LAB CHEMISTRY METHOD 03/08/2025 6:38 PM EDT [facility] Potassium 4.1 3.5 - 5.5 mmol/L LAB CHEMISTRY METHOD 03/08/2025 6:38 PM EDT [facility] Chloride 108 96 - 110 mmol/L LAB CHEMISTRY METHOD 03/08/2025 6:38 PM EDT [facility] CO2 28 21 - 32 mmol/L LAB CHEMISTRY METHOD 03/08/2025 6:38 PM EDT [facility] Anion Gap 5 3 - 11 LAB CHEMISTRY METHOD 03/08/2025 6:38 PM EDT [facility] Glucose 107(H) 70 - 100 mg/dL LAB CHEMISTRY METHOD 03/08/2025 6:38 PM EDT [facility] BUN 19 5 - 25 mg/dL LAB CHEMISTRY METHOD 03/08/2025 6:38 PM EDT [facility] Creatinine 1.08 0.70 - 1.30 mg/dL LAB CHEMISTRY METHOD 03/08/2025 6:38 PM EDT [facility] eGFR 74 >=60 mL/min/1. 73m2 LAB CHEMISTRY METHOD 03/08/2025 6:38 PM EDT [facility] Comment:Calculation based on the Chronic Kidney Disease Epidemiology Collaboration (CKD-EPI) equation refit without adjustment for race. BUN/Creatinine Ratio 17.6 LAB CHEMISTRY METHOD 03/08/2025 6:[facility] Calcium 9.1 8.5 - 10.5 mg/dL LAB CHEMISTRY METHOD 03/08/2025 6:[address] [facility] Blood Venous blood specimen / Unknown Venipuncture / Unknown 03/08/2025 4:14 PM EDT 03/08/2025 4:14 PM EDT Rishi Narayanan MD LAB BLOOD ORDERABLES Oralia suze Result [facility] [address] [place] [address], * Lipid panel with reflex to direct LDL (11/14/2024 8:37 AM EST) Cholesterol 149 0 - 200 mg/dL LAB CHEMISTRY METHOD 11/14/2024 12:31 PM EST [facility] Triglycerides 67 0 - 150 mg/dL LAB CHEMISTRY METHOD 11/14/2024 12:31 PM EST [facility] HDL 50 >=40 mg/dL LAB CHEMISTRY METHOD 11/14/2024 12:31 PM EST [facility] LDL Calculated 86 0 - 100 mg/dL LAB CHEMISTRY METHOD 11/14/2024 12:31 PM [facility] VLDL Cholesterol Hardik 13.4 mg/dL LAB CHEMISTRY METHOD 11/14/2024 12:31 PM EST [facility] Non HDL Chol. (LDL+VLDL) 99 <145 mg/dL LAB CHEMISTRY METHOD 11/14/2024 12:31 PM EST [facility] Chol/HDL Ratio 3.0 0.0 - 4.4 LAB CHEMISTRY METHOD 11/14/2024 12:31 PM [facility] Blood Venous blood specimen / Unknown Venipuncture / Unknown 11/14/2024 8:37 AM EST 11/14/2024 8:37 AM EST Rishi Narayanan MD LAB BLOOD ORDERABLES Oralia l Result [facility] [address] [place] [address], * Falls Risk Assessment (02/18/2024) [facility] Falls Risk Assessment abstracted Historical Provider HEALTH MAINTENANCE Final Result * Colonoscopy (06/24/2022) [facility] Colonoscopy abstracted, no interpretation Anatomical Region Laterality Modality Other Historical Provider HEALTH MAINTENANCE Final Result * Hepatitis C Screening (08/07/2014) [facility] Hepatitis C Screening abstracted Historical Provider HEALTH MAINTENANCE Final Result from Last 3 Months or Most Recently Relevant to Health Maintenance Insurance [employer] MEDICARE Advance Directives Documents on File Type Date Recorded Patient Member Service Specialist Expl anation Health Care Decision (hx) 07/08/2021 AD ALFONSO DIRECTIVE Health Care Decision (hx) 07/08/2021 AD ALFONSO DIRECTIVE Health Care Decision (hx) 07/08/2021 AD ALFONSO DIRECTIVE Health Care Decision (hx) 07/08/2021 AD ALFONSO DIRECTIVE Health Care Decision (hx) 07/08/2021 AD ALFONSO DIRECTIVE Health Care Decision (hx) 07/08/2021 AD ALFONSO DIRECTIVE Care Teams Customs Examiner Relationship Specialty Start Date End Date Giovanna Bunch MD [address] [place] [address] ANNELIESE MCDONALD [id number] PCP - General Internal Medicine 05/30/25
--- OUTSIDE RECORDS SUMMARY | 2025-08-02 10:59 | XMS_ITS ---
Author Organization [facility] [address] [facility] Building Address [address] [facility] [place] [address] Phone Care Team Providers Care Watch Parts Grinder Name Role Phone Giovanna Bunch MD Primary Care Provider [phone] Active Problems Problem Noted Date Diagnosed Date Hypertension 12/27/2024 Assessment & Plan (12/27/2024 3:39 PM EDT): Patient will follow low-sodium diet. Continue lisinopril. Orders: Basic metabolic panel; Future Morbid obesity with BMI of 4 0.0-44.9, adult ([facility] V24, [facility] V28) 07/06/2024 Retinal detachment, tractional, right 04/04/2024 Overview (07/06/2024): Dr. Ag - onset late February 2024 Prostate cancer ([facility] V24, [facility] V28) 10/13 Overview (07/06/2024): prostatectomy (08/07/2023). Pathology demonstrated [place] 4+3 P T3a disease with nonfocal EPE. [...]
--- OUTSIDE RECORDS SUMMARY | 2025-08-02 10:59 | XMS_ITS | Clinical Summary ---
Author Organization [facility] Address [address] [place] [address] Phone Care Team Providers Care Emblem Fuser Tender Name Role Phone Rishi Narayanan MD Primary Care Provider [phone] Khadar Roe MD Unavailable [phone] Vicki Kelly MD, MPH Unavailable [phone] Bárbara Patel MD Unavailable Active Problems [...] By: CROW DALAL Comment: EGD & Bx Ray JAN 03: +Hiatal Hernia & Esophag StricturApr [...] DALAL Comment: Right Side; NCS 1989's in [place] Positive for Neuropathy;Sep 25, 2010 Entered By: CROW DALAL Comment: much better after PT Other seborrheic dermatitis 11/22/2023 Actinic keratosis 11/22/2023 Severe obesity 11/22/2023 Prostate cancer 10/13/2023 Cancer Staging:Pathologic stage from 07/28/2023:Stage Unknown(pT3a, pNX, cM0, PSA: 5.2, Grade Group: 3, 07/28/23, Martha: 4, +: 3) - Signed by Vicki [...] Hip in 2020 Shows some AVN and [id number] OA Spine, Hips, Knees Sick sinus syndrome [...] 09/03/2017, Additional history exists COVID-19 VACCINE ( - 2024- season) 2025 LIPID PANEL 11/02/2028 11/02/2023 Adult Td,Tdap Booster 07/03/2032 07/03/2022 , 04/21/2012, 06/21/2005 ZOSTER VACCINES Completed 03/31/2022, 11/20, 11/26/2021 HEPATITIS A VACCINES Aged Out No long er eligible based on patient's age to complete this topic HIB VACCINES Aged Out No longer eligi ble based on patient's age to complete this topic IPV VACCINES Aged Out No longer eligi ble based on patient's age to complete this topic MENINGOCOCCAL VACCINES (ACWY) Aged Out No longer eligible based on patient's age to complete this topic MENINGOCOCCAL VACCINES (B) Aged Out N o longer eligible based on patient's age to complete this topic Medical Devices Not on file Insurance [facility] [employer] PLAN [facility] HEALTH PLAN [facility] PLAN [facility] [employer] PLAN [facility] HEALTH PLAN Care Teams Emblem Fuser Tender Relationship Specialty Start Date End Date Rishi Narayanan MD [address] [place] [id number] PCP - General Internal Medicine 11/03/23 Khadar Roe MD [address] [place] [id number] [email or web address] Oncology 11/03/23 Vicki Kelly MD, MPH [address] [place] [address], [facility] [address] [email or web address] Radiation Oncology 11/03/23 Bárbara Patel MD [address] [place] [address] [email or web address] [email or web address] Oncology 11/22/23 Additional Source Comments The information contained in this document represents components of the legal health record. It is not the complete legal health record.[facility]
--- OUTSIDE RECORDS SUMMARY | 2025-08-02 10:59 | XMS_ITS | Clinical Summary ---
Author Organization [facility] Address [address] [place] [address] Care Team Providers Care Delphi Developer Name Role Phone Rishi Narayanan MD Primary Care Provider [phone] Allergies No known active allergies Medications Medication [...] age to complete this topic Care Teams Delphi Developer Relationship Specialty Start Date End Date Rishi Narayanan MD [address] [place] [id number] PCP - General Internal Medicine 12/18/20
--- OUTSIDE RECORDS SUMMARY | 2025-08-02 10:59 | XMS_ITS | Encounter Summary ---
Author Organization [facility] Address [address] [place] [address] Phone Care Team Providers Care High School Physical Education Teacher Name Role Phone Rishi Narayanan MD Primary Care Provider [phone] Khadar Roe MD Unavailable [phone] Vicki Kelly MD, MPH Unavailable Bárbara Patel MD Unavailable Encounter Details Date Type Department Care Team (Late st Contact Info) Description 11/23/2023 Ancillary Orders Outside Imaging Khadar Roe MD [address] [place] [address] [email or web address] Social History Tobacco Use Types [...] UT INTERPRETATION Final Result Performing Organization Address City/State/[facility] Co de Phone Number PERC[facility] documented in this encounter Visit Diagnoses Not on filedocumented in this encounter Care Teams High School Physical Education Teacher Relationship Specialty Start Date End Date Rishi Narayanan MD [address] [place] [address] PCP - General Internal Medicine 11/03/23 Khadar Roe MD [address] [place] [address] [email or web address] Oncology 11/03/23 Vicki Kelly MD, MPH [address] [place] [address], [facility]- [address] [address] [email or web address] Radiation Oncology 11/03/23 Bárbara Patel MD [address] [place] [address] [email or web address] Radiation Oncology 11/22/23 documented as of this encounter Additional Source Comments The information contained in this document represents components of the legal health record. It is not the complete legal health record.[facility]
== END 2025-08-02 09:41 | disposition home or self-care (01) ==
LOC: HO.XRAY 09:40
PROVIDERS: PCP Internal Medicine; Visit Provider Internal Medicine
DX: R20.0 Anesthesia of skin (principal); M54.50 Low back pain, unspecified
CPT/HCPCS: 72100

== ENCOUNTER → 2025-08-02 09:47 | Outpatient (BNV) | payer OTHER, SELFPAY | PROVIDERS: PCP Internal Medicine; Visit Provider Radiology Diagnostic Radiology | DX: M47.817 Spondylosis without myelopathy or radiculopathy, lumbosacral region (principal) | CPT/HCPCS: 72100 ==

== ENCOUNTER 2025-08-11 08:38 | Outpatient (REF) | payer OTHER, SELFPAY ==
--- OUTSIDE RECORDS SUMMARY | 2025-08-11 08:43 | XMS_ITS | Data Portability ---
Author Organization [facility] Draper AONE [facility] Address [address] [place] [address] Assessment Encounter Date Assessment Date Assessment LastModified [...] be seen for further evaluation by our lawn care specialist. [email or web address] Not available 02/02/2023 16:10:34 Plan [...] dure pain levels. Please Call Karla at [phone] bpc [phone] when scheduled . 2022 023 [email or web address] 2 [facility] Interventional Radiology Scheduling, [address], [place], [address], 06/20/202 3 08:22:28 Procedures None recorded. Surgeries None recorded. Imaging XR, hip, unilatera l, 2 or 3 view 2022 023 [email or web address] 2 [facility], [address], [facility] [[email or web address] [address], [place], [address], 3 16:08:20 Medication Orders None recorded. Patient TargetsNo targets recorded. Patient InstructionsNo instructions recorded. Reason for Referral Interventional Radiologist Tom hooks for Pain of right hip joint Intra-articular injection of cortisone and local anesthetic to right hip. With x-ray or ultrasound guidance.Please document preprocedure and postprocedure pain levels.Please Call Karla at [phone] ext [phone] when scheduled. Referring Physician: Prem Jack, Orthopedic Surgery, Encounter Date: 02/02/2023 Results Created Date Observation Date Name Description Value Unit Range Abnormal Flag Note LastModifiedBy Organization Detail LastModifiedTime 02/26/2002/25/2023 CT, arthr ogram , hip No observ ation record ed. [facility] Diagnosit Imaging Dept [address] [place], [address], 02/27/2023 14:01:00 Result Notes None recorded. Problems Name Problem SNOMED Code Status Onset Date Resolution Date Notes Provider Name and Address Organization Details Recorded Time Pain of right hip joint [id number] Active 2022 PREM JACK PA-C [address] [facility] [address], [place], [address] [facility], P 3 16:05:21 Problem Notes None recorded. Procedures Surgical History Date Name Laterality Status Provider Name and Address Organization Details Recorded Time 09/21/19 21 total replacement of hip completed Chela Minaya [place] [facility] P 02/02/2023 16:13:24 09/21/19 19 surgical repair completed Chela Minaya [place] - [facility] 02/02/2023 16:13:48 Imaging Results None recorded. [...] Updated DateTime 02/02/2023 170.18 cm 39.2 kg/m2 825791.[address] [facility], 02/02/2023 16:12:26 Social History None recorded. Functional Status Question Answer Note LastModified by Organizat ion Details LastModified Time Do you use any illicit or recreational drugs? No Information not available 02/02/2023 What is your level of alcohol consumption? None [email or web address] Information not available 02/02/2023 Mental Status None recorded. Family History Relationship Description Onset Age of this Age Resolved Age Notes LastModified by Organization Details LastModified Time Father Family history of malignant neoplasm [email or web address] Not available 02/02 16:12:41 Father Diabetes mellitus [email or web address] Not available 02/02 16:12:50 Father Heart disease [email or web address] Not available 02/02 16:12:59 Medical History Condition Response Coronary Artery Disease N Gout N Hyperthyroidism N Blood Transfusion N MRSA N Emphysema N COPD N Depression N Hypothyroidism N Pacemaker N Vascular Disease N Gastrointestinal Disease N Anxiety Disorder N Autoimmune disease N Arthritis N Cancer N Stroke N High Cholesterol N Neurologic Disorder N Liver Disease N Organ Transplant N Arrhythmia N Rheumatoid Arthritis N Fibromyalgia N Kidney Disease N Allergies/Hayfever N Adverse Reaction to Anesthesia N Thyroid Problems N Anemia N Brain Injury N Heart Attack (AL) N Osteopenia N Diabetes N Bleeding Disorder [...] ICD10 Code Diagnosis IMO Codes Diagnosis Note [id number] [address] [address] 02/02/2023 15:21:08 02/02/2023 16:08:20 Pain of right hip joint [id number] 59723 M25.551 Health Concerns Section Related Observation LastModified by Organization Detai ls LastModified Time None Recorded Concern Status LastModified by Organization Details LastModified Time None Recorded Advance Directives Directive None Recorded Payers Insurance Date Sequence Insurance Name Policy Number Policy Burks Covered Member ID Burks Member ID Guarantor Name 01/20/2023 1 [facility] (POS) [id number] [facility] [id number] [facility] 01/20/2023 1 [facility] (PPO) [id number] [facility] [id number] [facility] Notes Date Note Type Note Provider Name [...] to warrant surgical intervention. PREM JACK PA-C [address] [place] [address], [id number], [place] [facility] 02/02/2023 16:11:04
--- OUTSIDE RECORDS SUMMARY | 2025-08-11 08:43 | XMS_ITS | Encounter Summary ---
Author Organization [facility] Address [address] [place] [address] Phone Care Team Providers Care Air Traffic Control Supervisor Name Role Phone Rishi Narayanan MD Primary Care Provider [phone] Khadar Roe MD Unavailable [phone] Vicki Kelly MD, MPH Unavailable [phone] Bárbara Patel MD Unavailable Encounter Details Date Type Department Care Team (Late st Contact Info) Description 11/23/2023 Ancillary Orders Outside Imaging Khadar Roe MD [address] [place] [address] [email or web address] Social History Tobacco Use Types Packs/Day [...] UT INTERPRETATION Final Result Performing Organization Address City/State/[facility] Co de Phone Number [facility] documented in this encounter Visit Diagnoses Not on filedocumented in this encounter Care Teams Air Traffic Control Supervisor Relationship Specialty Start Date End Date Rishi Naraynaan MD [address] [place] [address] PCP - General Internal Medicine 11/03/23 Khadar Roe MD [address] [place] [address] [email or web address] Oncology 11/03/23 Vicki Kelly MD, MPH [address] [place] [address], [facility]- [address] [address] [email or web address] Radiation Oncology 11/03/23 Bárbara Patel MD [address] [place] [address] [email or web address] Radiation Oncology 11/22/23 documented as of this encounter Additional Source Comments The information contained in this document represents components of the legal health record. It is not the complete legal health record.[facility]
--- OUTSIDE RECORDS SUMMARY | 2025-08-11 08:43 | XMS_ITS | Clinical Summary ---
Author Organization [facility] [address] [facility] Address [address] [place] [address] Phone Care Team Providers Care Center Machine Set Up Operator Name Role Phone Giovanna Bunch MD Primary Care Provider Allergies No known active allergies Medications furosemide [...] - onset late February 2024 Prostate cancer ([facility]/HCC V24, [facility]/HCC V28) 10/13 Overview (07/06/2024): prostatectomy (08/07/2023). Pathology [...] can come back as needed. Pituitary adenoma ([facility]/HCC V24, [facility]/HCC V28) Overview (07/06/2024): 4.5 mm, [...] COMMENT: right OTHER SURGICAL HISTORY 1997 PROCEDURE: LA SURGICAL ARTHROSCOPY SHOULDER LMTD DBRDMT 09/22; COMMENT: right OTHER SURGICAL HISTORY 01/25 PROCEDURE: LA ECHO TRANSTHORAC R-T 2D W/WO M-MODE REC COMP; COMMENT: neg FLEXIBLE SIGMOIDOSCOPY 04/16/09 PROCEDURE: LA SIGMOIDOSCOPY FLX DX W/COLLJ SPEC BR/WA IF PFRMD; COMMENT: hemorrhoids and diverticulosis ESOPHAGOGASTRODUODENOSCOPY 12/25/14 PROCEDURE: LA ESOPHAGOGASTRODUODENOSCOPY TRANSORAL DIAGNOSTIC; COMMENT: peptic stricture at GE junction dilated to 20 m with balloon; erosive esophagitis, biopsied; no Ortiz's COLONOSCOPY 08/26 PROCEDURE: LA COLONOSCOPY STOMA DX INCLUDING COLLJ SPEC SPX; COMMENT: Iron; tics; rpt 5 y COLONOSCOPY 11/17/11 PROCEDURE: LA COLONOSCOPY STOMA DX INCLUDING COLLJ SPEC SPX; COMMENT: tics and hemorrhoids; repeat in 5 yrs COLONOSCOPY 12/04/16 PROCEDURE: COLOREC CANC SCRN,COLONOSCPY HI RISK; COMMENT: tics and hemorrhoids; repeat in 5 yrs OTHER SURGICAL HISTORY 04/2019 Left PROCEDURE: LA OPEN TREATMENT CALCANEAL FRACTURE; COMMENT: ORIF calcaneus fracture OTHER SURGICAL HISTORY 07/04/2021 Left PROCEDURE: LA ARTHRP ACETBLR/PROX FEM PROSTC AGRFT/ALGRFT Medical History [...] y; COMMENT: sono 01/05 Sick sinus syndrome ([facility]/HCC V24, [facility]/HCC V28) 03/11/2019 DX:Sick sinus syndrome (HCC) Mitral [...] LAB CHEMISTRY METHOD 03/08/2025 6:38 PM EDT [facility] Potassium 4.1 3.5 - 5.5 mmol/L LAB CHEMISTRY METHOD 03/08/2025 6:38 PM EDT [facility] Chloride 108 96 - 110 mmol/L LAB CHEMISTRY METHOD 03/08/2025 6:38 PM EDT [facility] CO2 28 21 - 32 mmol/L LAB CHEMISTRY METHOD 03/08/2025 6:38 PM EDT [facility] Anion Gap 5 3 - 11 LAB CHEMISTRY METHOD 03/08/2025 6:38 PM EDT [facility] Glucose 107(H) 70 - 100 mg/dL LAB CHEMISTRY METHOD 03/08/2025 6:38 PM EDT [facility] BUN 19 5 - 25 mg/dL LAB CHEMISTRY METHOD 03/08/2025 6:38 PM EDT [facility] Creatinine 1.08 0.70 - 1.30 mg/dL LAB CHEMISTRY METHOD 03/08/2025 6:38 PM EDT [facility] eGFR 74 >=60 mL/min/1. 73m2 LAB CHEMISTRY METHOD 03/08/2025 6:38 PM EDT [facility] Comment:Calculation based on the Chronic Kidney Disease Epidemiology Collaboration (CKD-EPI) equation refit without adjustment for race. BUN/Creatinine Ratio 17.6 LAB CHEMISTRY METHOD [facility] Calcium 9.1 8.5 - 10.5 mg/dL LAB CHEMISTRY METHOD 03/08/2025 6:38 PM [facility] Blood Venous blood specimen / Unknown Venipuncture / Unknown 03/08/2025 4:14 PM EDT 03/08/2025 4:14 PM EDT Rishi Narayanan MD LAB BLOOD ORDERABLES Oralia suze Result [facility] [address] [place] [address], * Lipid panel with reflex to direct LDL (11/14/2024 8:37 AM EST) Cholesterol 149 0 - 200 mg/dL LAB CHEMISTRY METHOD 11/14/2024 12:31 PM EST [facility] Triglycerides 67 0 - 150 mg/dL LAB CHEMISTRY METHOD 11/14/2024 12:31 PM EST [facility] HDL 50 >=40 mg/dL LAB CHEMISTRY METHOD 11/14/2024 12:31 PM EST [facility] LDL Calculated 86 0 - 100 mg/dL LAB CHEMISTRY METHOD 11/14/2024 12:31 PM [facility] VLDL Cholesterol Hardik 13.4 mg/dL LAB CHEMISTRY METHOD 11/14/2024 12:31 PM EST [facility] Non HDL Chol. (LDL+VLDL) 99 <145 mg/dL LAB CHEMISTRY METHOD 11/14/2024 12:31 PM EST [facility] Chol/HDL Ratio 3.0 0.0 - 4.4 LAB CHEMISTRY METHOD 11/14/2024 12:31 PM [facility] Blood Venous blood specimen / Unknown Venipuncture / Unknown 11/14/2024 8:37 AM EST 11/14/2024 8:37 AM EST Rishi Narayanan MD LAB BLOOD ORDERABLES Oralia l Result [facility] [address] [place] [address], * Falls Risk Assessment (02/18/2024) [facility] Falls Risk Assessment abstracted Historical Provider HEALTH MAINTENANCE Final Result * Colonoscopy (06/24/2022) [facility] Colonoscopy abstracted, no interpretation Anatomical Region Laterality Modality Other Historical Provider HEALTH MAINTENANCE Final Result * Hepatitis C Screening (08/07/2014) [facility] Hepatitis C Screening abstracted Historical Provider HEALTH MAINTENANCE Final Result from Last 3 Months or Most Recently Relevant to Health Maintenance Insurance FAMILY [employer] PLAN MEDICARE Advance Directives Documents on File Type Date Recorded Patient Flume Worker Expl anation Health Care Decision (hx) 07/08/2021 AD ALFONSO DIRECTIVE Health Care Decision (hx) 07/08/2021 AD ALFONSO DIRECTIVE Health Care Decision (hx) 07/08/2021 AD ALFONSO DIRECTIVE Health Care Decision (hx) 07/08/2021 AD ALFONSO DIRECTIVE Health Care Decision (hx) 07/08/2021 AD ALFONSO DIRECTIVE Health Care Decision (hx) 07/08/2021 AD ALFONSO DIRECTIVE Care Teams Center Machine Set Up Operator Relationship Specialty Start Date End Date Giovanna Bunch MD [address] [place] [address] ANNELIESE MCDONALD [address] PCP - General Internal Medicine 05/30/25
--- OUTSIDE RECORDS SUMMARY | 2025-08-11 08:43 | XMS_ITS ---
Author Organization [facility] [address] [facility] Address [address] [facility] [place] [address] Phone Care Team Providers Care Treasury Specialist Name Role Phone Giovanna Bunch MD Primary Care Provider [phone] Active Problems Problem Noted Date Diagnosed Date Hypertension 12/27/2024 Assessment & Plan (12/27/2024 3:39 PM EDT): Patient will follow low-sodium diet. Continue lisinopril. 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 Ag - onset late February 2024 Prostate cancer ([facility] V24, [facility] V28) 10/13 Overview (07/06/2024): prostatectomy (08/07/2023). Pathology demonstrated [place] 4+3 P T3a disease with nonfocal EPE. [...]
--- OUTSIDE RECORDS SUMMARY | 2025-08-11 08:43 | XMS_ITS | Clinical Summary ---
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, Hips, Knees Sick sinus syndrome [...] topic Medical Devices Not on file Insurance [facility] FAMILY HE[employer] PLAN [facility] FAM[facility] [employer] PLAN [facility] FAM[employer] PLAN Care Teams English Language Learner Teacher Relationship Specialty Start Date End Date Rishi Narayanan MD [address] [place] [address] PCP - General Internal Medicine 11/03/23 Khadar Roe MD [address] [place] [address] [email or web address] [email or web address] 11/03/23 Vicki Kelly MD, MPH [address] [place] [address] [email or web address] Oncology 11/03/23 Bárbara Patel MD [facility] [place] [address] [email or web address] Radiation Oncology 11/22/23 Additional Source Comments The information contained in this document represents components of the legal health record. It is not the complete legal health record.[facility]
--- OUTSIDE RECORDS SUMMARY | 2025-08-11 08:43 | XMS_ITS | Encounter Summary ---
Author Organization [facility] Address [address] [place] [address] Phone Care Team Providers Care Fur Stretcher Name Role Phone Rishi Narayanan MD Primary Care Provider [phone] Khadar Roe MD Unavailable [phone] Vicki Kelly MD, MPH Unavailable [phone] Bárbara Patel MD Unavailable Encounter Details Date Type Department Care Team (Late st Contact Info) Description 11/23/2023 Ancillary Orders Outside Imaging Khadar Roe MD [address] [place] [address] [email or web address] Social History Tobacco Use Types Packs/Day [...] on filedocumented in this encounter Care Teams Fur Stretcher Relationship Specialty Start Date End Date Rishi Narayanan MD [address] [place] [address] PCP - General Internal Medicine 11/03/23 Khadar Roe MD [address] [place] [address] [email or web address] Oncology 11/03/23 Vicki Kelly MD, MPH [address] [place] [address], [facility] [place] [address] [email or web address] Oncology 11/03/23 Bárbara Patel MD [address] [place] [address] [email or web address] Radiation Oncology 11/22/23 documented as of this encounter Additional Source Comments The information contained in this document represents components of the legal health record. It is not the complete legal health record.[facility]
--- OUTSIDE RECORDS SUMMARY | 2025-08-11 08:43 | XMS_ITS | Clinical Summary ---
Author Organization [facility] Address [address] [place] [address] Care Team Providers Care Grain Receiver Name Role Phone Rishi Narayanan MD Primary Care Provider [phone] Allergies No known active allergies Medications Medication [...] age to complete this topic Care Teams Grain Receiver Relationship Specialty Start Date End Date Rishi Narayanan MD [address] [place] [address] PCP - General Internal Medicine 12/18/20
[2025-08-11 11:28] LABS: MANUAL DIFF FLAG NO
[2025-08-11 11:45] LABS: Hematocrit 39.6 % (42.0-52.0); Hemoglobin 13.1 g/dl (14.0-18.0); Imm Gran Abs Auto 0.01 X10*3/uL (0.00-0.03); Imm Gran Pct Auto 0.3 % (0.0-0.4); Lymphocytes Absolute Auto 0.6 X10*3/uL (1.2-4.9); Mean Corpuscular HGB Conc 33.1 g/dl (31.0-36.0); Mean Corpuscular Hemoglobin 29.6 pg (27.0-33.0); Mean Corpuscular Volume 89.4 fL (80.0-98.0); NRBC Abs Auto 0.000 X10*3/uL (0.0-0.012); NRBC Pct Auto 0.0 /100WBC (0.0-0.2); Platelet Count 190 X10*3/uL (160-400); Red Blood Count 4.43 X10*6/uL (4.60-5.80); White Blood Count 3.6 X10*3/uL (4.8-10.8)
[2025-08-11 13:23] LABS: Alanine Aminotransferase 26 U/L (0-40); Albumin Level 4.4 g/dL (3.5-5.0); Alkaline Phosphatase 91 U/L (39-117); Anion Gap 11 (12-20); Aspartate Amino Transferase 28 U/L (5-37); Blood Urea Nitrogen 24 mg/dL (9-16); Calcium 9.4 mg/dL (8.4-10.2); Carbon Dioxide 27 mmol/L (22-29); Chloride 109 mmol/L (96-108); Cholesterol 167 mg/dL (<200); Estimated Glomerular Filt Rate > 60; HDL Cholesterol 53 mg/dL (>40); Potassium 4.4 mmol/L (3.3-5.1); Sodium 143 mmol/L (135-145); Total Protein 7.1 g/dL (6.5-8.0); Triglycerides 83 mg/dL (<150)
[2025-08-12 14:18] LABS: Lyme Abs Screen <0.90 index
[2025-08-19 13:08] LABS: Testosterone, Free 7.4 pg/mL (35.0-155.0)
== END 2025-08-11 08:39 | disposition home or self-care (01) ==
LOC: HO.WFDLDS 08:38
PROVIDERS: Visit Provider Internal Medicine
DX: Z01.84 Encounter for antibody response examination (principal); Z13.228 Encounter for screening for other metabolic disorders; D35.2 Benign neoplasm of pituitary gland; C61 Malignant neoplasm of prostate; R35.89 Other polyuria; I10 Essential (primary) hypertension; M25.551 Pain in right hip; Z13.1 Encounter for screening for diabetes mellitus
CPT/HCPCS: 36415; 80053; 80061; 83036; 84402; 84403; 84443; 85025; 86617; 86618